=== PATIENT | male | born 1975 | race Caucasian/White ===

== ENCOUNTER 2016-11-29 11:06 | Inpatient (IN) | payer BC ==
[~2016-11-29] VITALS: Ht 172.7 cm; Wt 138.3 kg
--- NOTE | ~2016-11-29 | HEMODYNAMI ---
PATIENT:MORIAH TADEO MEDICAL RECORD: [id number] : 77 LOCATION:D.MS [facility] ADMISSION DATE: 11/29/16 Generatedon:12/06/201610:23 Patient name: MORIAH TADEO Patient #: [id number] SSN: : Date of study: 12/06/2016 Page: Of Hemodynamic Procedure Report Patient Data Patient Demographics Procedure consent was obtained First Name: MORIAH Gender: Male Last Name: SHWETHA : 1975 Middle Initial: M Age: 41 year(s) Patient #: [id number] Race: Unknown Additional ID: [id number] Contact [facility] State: [place] City: [facility] Zip code: [address] Admission Admission Data Admission Date: 11/29/2016 Admission Time: 11:06 Room #: D.2216 Procedure Procedure Types Cath Procedure Peripheral Cath Diagnostic Procedure Miscellaneous Procedure Description Procedure Date Procedure Date: 12/06/2016 Procedure Start Time: 10:06 Procedure Staff Name Function Chai Mendoza MD Performing Physician Autumn Rojas RT Scrub Mack Ceja RT Monitor Procedure Data Cath Procedure Fluoroscopy Diagnostic fluoroscopy Total fluoroscopy Time: 0 time: 0 min min Diagnostic fluoroscopy Total fluoroscopy dose: 106 dose: 106 mGy mGy Contrast Material Contrast Material Type Amount (ml) Isovue 300 10 Hemodynamics Rest Pre Cath Intra NCS Post Cath Procedure Log Time Note 9:50:56 Mack Ceja RT (R) (CV) sent for patient. Start room use. 9:51:24 Time tracking: Regular hours 9:51:29 Plan of Care:Hemodynamics will remain stable., Cardiac rhythm will remain stable., Comfort level will be maintained., Respiratory function will remain adequate., Patient/ family verbilizes understanding of procedure., Procedure tolerated without complication., Recovers from procedure without complications.. 9:51:42 Patient received from Med/Surg to IR Alert and oriented. Tansferred to table in Supine position. 9:51:43 Correct patient and procedure confirmed by team. 9:51:45 Signed procedure consent form obtained from patient. 9:51:47 ECG and BP/O2 sat monitors applied to patient. 9:51:50 Full Disclosure recording started 9:51:50 - 9:51:55 H&P Date Dictated: 12/06/2016 H&P Addendum completed by physician on day of procedure. (MUST COMPLETE FOR ALL OUTPATIENTS). 9:51:55 Pre-procedure instructions explained to patient. 9:51:56 Pre-op teaching completed and patient verbalized understanding. 9:52:12 Alarms reviewed by R. N. 9:52:13 Sharps counted by scrub and verified by R.N. 9:52:18 Right abdomen area was prepped with chlora-prep and draped in sterile fashion 9:52:42 Use device set IR Diagnostic 9:52:45 Bag Decanter opened to sterile field. 9:52:45 Sterile Angiographic Pack opened to sterile field. 10:06:08 Physician arrived 10:06:08 --------ALL STOP TIME OUT------ 10:06:09 Final Timeout: patient, procedure, and site verified with staff and physician. All members of the team are in agreement. 10:06:12 Right abdomen site verified by team. 10:06:21 Sedation plan: Local Anesthetic Lidocaine 10:06:43 Procedure started. 10:06:49 Local anesthetic to Abdominal area with Lidocaine 1% by Chai Mendoza MD.INITIAL ACCESS ONLY 10:17:17 Terumo ANGLE 180L glide wire opened to sterile field. 10:19:45 Procedure ended.(Physican Out) 10:20:18 Contrast amount:Isovue 300 10ml. 10:20:22 Fluoroscopy time 00.00 minutes. 10:20:27 Fluoroscopy dose: 106 mGy 10:20:27 Flurop Dose total: 106 10:20:28 Sharps counted by scrub and verified by R.N. 10:20:49 Post-op/insertion site Right Abdominal area dressed using a 4 x 4 and Tegaderm. 10:20:55 Post Abdominal area:stable 10:20:57 Post Procedure Pulses reassessed and unchanged 10:20:58 Procedure and supply charges have been captured, reviewed, submitted an d are correct. 10:22:27 Report given to Med/Surg. 10:22:32 Patient transfered to Med/Surg with Bed. Device Usage Item Name Manufacture Quantity Catalog Hospital Part Current Minimal Lot# / Number Charge Number Stock Stock Serial# Code Bag Decanter Microtek 1 [id number] 5 [employer] Sterile Cardinal 1 [id number] 5 Angiographic Health Pack Terumo ANGLE Terumo 1 [id number] 5 180L glide wire Signature Audit [place] Stage Time Signature Unsigned Intra-Procedure 12/06/2016 Mack 10:23:08 AM Marcial RT (R) (CV) Signatures Monitor : Mack Signature : Marcial RT Date : Time : [facility] [address] [place] [address]
[2016-11-29 12:10] LABS: BASOPHILS 0.2 % (0-2); EOSINOPHILS 2.2 % (0-7); HEMATOCRIT 43.8 % (42.0-54.0); HEMOGLOBIN 15.4 g/dL (13.5-17.5); IMMATURE GRANULOCYTES 0.2 % (0-5); LYMPHOCYTES 12.2 % (15-50); MCH 30.5 pg (26.0-34.0); MCHC 35.2 g/dL (31.0-37.0); MCV 86.7 fL (80.0-100.0); MEAN PLATELET VOLUME 10.4 fL (7.4-10.4); MONOCYTES 8.5 % (2-11); NEUTROPHILS 76.7 % (40-80); PLATELET COUNT 313 10x3/uL (130-400); RBC 5.05 10x6/uL (4.20-6.10); RDW 12.4 % (11.5-14.5); WBC 9.8 10x3/uL (4.8-10.8)
[2016-11-29 12:27] LABS: ALBUMIN 3.7 g/dL (3.4-5.0); ALKALINE PHOSPHATASE 92 U/L (46-116); ALT (SGPT) 44 U/L (10-68); BILIRUBIN - TOTAL 0.74 mg/dL (0.2-1.3); CALC OSMOLALITY 273 mosm/kg (275-300); CALCIUM 9.1 mg/dL (8.5-10.1); CARBON DIOXIDE 24.8 mmol/L (21.0-32.0); CHLORIDE - SERUM 101 mmol/L (98-107); GLUCOSE 87 mg/dL (74-106); POTASSIUM - SERUM 3.8 mmol/L (3.5-5.1); PROTEIN - SERUM 8.2 g/dL (6.4-8.2); SODIUM 137 mmol/L (136-145); UREA NITROGEN 16 mg/dL (7-18); eGFR NON AFRICAN AMERICAN 88 mL/min (90-120)
--- NOTE | 2016-11-29 12:40 | NUR ---
IN ROOM. STATES HE HAS BEEN HERE SINCE 1200. INTRODUCED MYSELF AND APOLOGIZE FOR THE WAIT. ORIENTED TO ROOM AND CALL LIGHT SYSTE. AND BROTHER AT BEDSIDE. CALL LIGHT IN REACH. WILL CONTINUE WITH PLAN OF CARE.
--- NOTE | 2016-11-29 13:00 | NUR ---
ATTEMPTED TO PLACE AN IV. SITED TO RIGHT FOREARM WITH 20 GA X1 STICK BUT VEIN BLEW WHEN FLUSHED. UNABLE TO GET 2ND ATTEMPT.
[2016-11-29 13:30] VITALS: BP 168/97; BMI 46.4
--- NOTE | 2016-11-29 14:01 | NUR ---
VASCULAR NURSE IN ROOM TO DO MIDLINE. IV FLUIDS AND IV ABX INITIATED PER ORDER. URINAL GIVEN TO PATIENT TO COLLECT SAMPLE FOR UA AND CULTURE.
--- NOTE | 2016-11-29 14:32 | NUR ---
URINE SAMPLE COLLECTED AND SENT TO LAB.
[2016-11-29 16:12] LABS: APPEARANCE CLEAR (CLEAR); BILIRUBIN NEGATIVE (NEGATIVE); COLOR YELLOW (YELLOW); GLUCOSE NEGATIVE (NEGATIVE); KETONE MODERATE mg/dL (NEGATIVE); LEUKOCYTE ESTERASE NEGATIVE (NEGATIVE); NITRITE NEGATIVE (NEGATIVE); PROTEIN NEGATIVE (NEGATIVE); SPECIFIC GRAVITY 1.015 (1.005-1.020); UROBILINOGEN NORMAL (NORMAL)
[2016-11-29 16:29] VITALS: BP 157/95
--- NOTE | 2016-11-29 16:59 | NUR ---
FAMILY UPSET BECAUSE THEY WERE UNDER THE IMPRESSION THAT THE PATIENT WOULD HAVE SURGERY SOON HE GOT TO THE HOSPITAL. ASKED ESTHER SOTO TO SPEAK WITH PATIENT AND FAMILY.
--- NOTE | 2016-11-29 18:07 | NUR ---
NO CHANGES IN INITIAL ASSESSMENT. CALL LIGHT IN REACH. WILL CONTINUE WITH PLAN OF CARE. SCDs TO BLE.
[2016-11-29 20:07] VITALS: BP 149/94
--- NOTE | 2016-11-29 22:07 | NUR ---
REC'D LYING IN BED. ALERT AND ORIENTED X4. DENIED PAIN AT THIS TIME. DENIED FURTHER NEEDS AT THIS TIME. REPORTED THAT HE DIDNT KNOW WHY HE WAS HE HERE. I EXPLAINED TO HIM ABT THE FISTULA THAT HE HAS AND THE ABCESS AND HOW THE PLANS ON TREATING IT. VERBALIZED UNDERSTANDING. NO DISTRESS NOTED. INSTRUCTED TO CALL IF NEEDED ANYTHING. VERBALIZED UNDERSTANDING. WILL ADMIN PM/AM MEDS PRESCRIBED. BED LOW, LOCKED, CALL LIGHT IN REACH. WILL CONT TO DU.
[2016-11-29 23:50] VITALS: BP 142/84
[2016-11-30 04:00] VITALS: BP 130/80
--- NOTE | 2016-11-30 04:52 | NUR ---
PATIENT RESTING WITH EYES CLOSED AND NO VISIBLE SIGNS OF DISTRESS. BED IN LOWEST POSITION AND CALL LIGHT WITHIN REACH.
--- NOTE | 2016-11-30 07:25 | NUR ---
PATIENT RECEIVED IN LOW INMAN POSITION RESTING WITH EYES CLOSED. RESPIRATIONS EVEN AND UNLABORED. DENIES PAIN OTHER THAN "GAS PAIN" BED IN LOW POSITION. CALL LIGHT IN REACH. FAMILY AT BEDSIDE.
--- NOTE | 2016-11-30 07:30 | NUR ---
ASSESSMENT PER FLOW SHEET.PT WITHOUT DISTRESS.DENIES NEEDS.CALL LIGHT IN REACH
[2016-11-30 08:01] LABS: BASOPHILS 0.2 % (0-2); EOSINOPHILS 1.9 % (0-7); HEMATOCRIT 42.9 % (42.0-54.0); HEMOGLOBIN 15.4 g/dL (13.5-17.5); IMMATURE GRANULOCYTES 0.2 % (0-5); LYMPHOCYTES 11.1 % (15-50); MCH 30.7 pg (26.0-34.0); MCHC 35.9 g/dL (31.0-37.0); MCV 85.5 fL (80.0-100.0); MEAN PLATELET VOLUME 10.5 fL (7.4-10.4); MONOCYTES 10.4 % (2-11); NEUTROPHILS 76.2 % (40-80); PLATELET COUNT 281 10x3/uL (130-400); RBC 5.02 10x6/uL (4.20-6.10); RDW 12.4 % (11.5-14.5); WBC 8.6 10x3/uL (4.8-10.8)
[2016-11-30 08:17] LABS: ALKALINE PHOSPHATASE 76 U/L (46-116); ALT (SGPT) 34 U/L (10-68); CALC OSMOLALITY 274 mosm/kg (275-300); CALCIUM 8.8 mg/dL (8.5-10.1); CARBON DIOXIDE 25.2 mmol/L (21.0-32.0); CHLORIDE - SERUM 102 mmol/L (98-107); CREATININE - SERUM 0.9 mg/dL (0.6-1.3); GLUCOSE 94 mg/dL (74-106); MAGNESIUM - SERUM 1.9 mg/dL (1.8-2.4); PHOSPHOROUS 3.4 mg/dL (2.5-4.9); POTASSIUM - SERUM 3.8 mmol/L (3.5-5.1); PROTEIN - SERUM 7.4 g/dL (6.4-8.2); SODIUM 137 mmol/L (136-145); UREA NITROGEN 16 mg/dL (7-18); eGFR NON AFRICAN AMERICAN > 90 mL/min (90-120)
[2016-11-30 09:08] LABS: APTT 34.7 SECONDS (22.8-39.4); INR 1.17 (0.85-1.17); PROTIME 14.8 SECONDS (11.6-15.0)
[2016-11-30 10:12] VITALS: Ht 172.7 cm; Wt 138.3 kg
[2016-11-30 10:19] VITALS: BP 135/75
--- NOTE | 2016-11-30 12:25 | NUR ---
TO IR VIA BED
[2016-11-30 14:08] VITALS: BP 140/81
[2016-11-30 17:15] VITALS: BP 126/83
[2016-11-30 20:00] VITALS: BP 140/74
--- NOTE | 2016-11-30 20:10 | NUR ---
PT YELLS OUT FOR HELP PT IS [facility] OUT OF BED WITH HEAD AND BOTTOM STILL ON BED V/S WNL AND COLD CLAMY SKIN DR COREA NOTIFIED
[2016-11-30 21:21] LABS: CKMB 0.3 U/L (0.0-3.6); CREATINE KINASE 51 UL (21-232)
[2016-11-30 21:22] LABS: TROPONIN-I < 0.017 ng/mL (0.000-0.060)
[2016-12-01] VITALS: BP 139/77
[2016-12-01 02:19] LABS: BASOPHILS 0.1 % (0-2); EOSINOPHILS 0.5 % (0-7); HEMATOCRIT 40.1 % (42.0-54.0); HEMOGLOBIN 14.3 g/dL (13.5-17.5); IMMATURE GRANULOCYTES 0.2 % (0-5); LYMPHOCYTES 9.6 % (15-50); MCH 30.4 pg (26.0-34.0); MCHC 35.7 g/dL (31.0-37.0); MCV 85.3 fL (80.0-100.0); MEAN PLATELET VOLUME 9.9 fL (7.4-10.4); MONOCYTES 8.2 % (2-11); NEUTROPHILS 81.4 % (40-80); PLATELET COUNT 268 10x3/uL (130-400); RDW 12.1 % (11.5-14.5); WBC 10.7 10x3/uL (4.8-10.8)
[2016-12-01 02:40] LABS: CALC OSMOLALITY 268 mosm/kg (275-300); CALCIUM 8.5 mg/dL (8.5-10.1); CARBON DIOXIDE 25.9 mmol/L (21.0-32.0); CHLORIDE - SERUM 103 mmol/L (98-107); CKMB 0.1 U/L (0.0-3.6); CREATINE KINASE 51 UL (21-232); CREATININE - SERUM 0.9 mg/dL (0.6-1.3); GLUCOSE 96 mg/dL (74-106); POTASSIUM - SERUM 3.8 mmol/L (3.5-5.1); SODIUM 135 mmol/L (136-145); TROPONIN-I < 0.017 ng/mL (0.000-0.060); eGFR NON AFRICAN AMERICAN > 90 mL/min (90-120)
[2016-12-01 02:50] LABS: UREA NITROGEN 11 mg/dL (7-18)
[2016-12-01 04:00] VITALS: BP 144/76
--- NOTE | 2016-12-01 07:30 | NUR ---
ASSESSMENTPER FLOW SHEET.PT WITHOUT DISTRESS.CALL LIGHT IN REACH.
[2016-12-01 09:38] LABS: CKMB 0.2 U/L (0.0-3.6); CREATINE KINASE 50 UL (21-232)
[2016-12-01 09:40] LABS: TROPONIN-I < 0.017 ng/mL (0.000-0.060)
[2016-12-01 10:21] VITALS: BP 139/82
[2016-12-01 12:47] VITALS: BP 171/99
[2016-12-01 14:30] LABS: HEMOGLOBIN A1C 5.6 % (4.8-6.0)
--- NOTE | 2016-12-01 18:00 | NUR ---
REMAINS WITHOUT CHANGE.TOLERATING CL DIET.CALENDER WIND UP HELPER CONTROLLING PAIN.30 CC OF BLOOD TINGED DRAINAGE IN BILI BAG.CONT PLAN OF CARE
--- NOTE | 2016-12-01 19:00 | NUR ---
REPORT RECEIVED AND CARE OF PT ASSUMED. PT LYING IN SUPINE POSITION WATCHING TV. RIGHT MIDLINE IV PATENT WITH NS INFUSING AT 100 ML / HR. CENTRAL PROCESSING TECHNICIAN / DILAUDID IN USE AND PT STATES PAIN WELL CONTROLLED AT THIS ASSESSMENT. DRESSING AROUND DRAIN CLEAN AND DRY. SCANT BLOODY DRAINAGE IN COLLECTION BAG. WILL MONITOR CLOSELY FOR NEEDS. CALL LIGHT WITHIN REACH.
[2016-12-01 20:00] VITALS: BP 139/85
--- NOTE | 2016-12-01 20:37 | NUR ---
HS MEDICATIONS GIVEN. WILL CONTINUE TO MONITOR FOR NEED.
--- NOTE | 2016-12-01 21:45 | NUR ---
FLUSHED DRAIN WITH 10 ML NS WITH IMMIDIATE RETURN OF BLOODY DRAINAGE. WILL CONTINUE TO MONITOR FOR NEED.
--- NOTE | 2016-12-01 22:07 | NUR ---
AT BEDSIDE PERFORMING RANGE OF MOTION EXERCISES ON PT.
[2016-12-02] VITALS: BP 128/70
--- NOTE | 2016-12-02 00:30 | NUR ---
PT RESTING QUIETLY IN SUPINE POSITION WITH EYES CLOSED AND EVEN RESPIRATIONS. IS AT BEDSIDE. CALL LIGHT WITHIN REACH.
[2016-12-02 04:00] VITALS: BP 117/74
[2016-12-02 05:23] LABS: BASOPHILS 0.2 % (0-2); EOSINOPHILS 1.5 % (0-7); HEMOGLOBIN 13.3 g/dL (13.5-17.5); IMMATURE GRANULOCYTES 0.1 % (0-5); LYMPHOCYTES 12.9 % (15-50); MCV 85.6 fL (80.0-100.0); MEAN PLATELET VOLUME 10.2 fL (7.4-10.4); MONOCYTES 9.6 % (2-11); NEUTROPHILS 75.7 % (40-80); PLATELET COUNT 262 10x3/uL (130-400); RBC 4.44 10x6/uL (4.20-6.10); RDW 12.2 % (11.5-14.5); WBC 8.8 10x3/uL (4.8-10.8)
[2016-12-02 05:37] LABS: CALC OSMOLALITY 268 mosm/kg (275-300); CALCIUM 8.6 mg/dL (8.5-10.1); CARBON DIOXIDE 25.3 mmol/L (21.0-32.0); CHLORIDE - SERUM 103 mmol/L (98-107); CREATININE - SERUM 0.8 mg/dL (0.6-1.3); GLUCOSE 94 mg/dL (74-106); POTASSIUM - SERUM 3.6 mmol/L (3.5-5.1); SODIUM 135 mmol/L (136-145); UREA NITROGEN 11 mg/dL (7-18); eGFR NON AFRICAN AMERICAN > 90 mL/min (90-120)
--- NOTE | 2016-12-02 08:16 | NUR ---
PT SEEN AND ASSESSED. NO COMPLAINTS AT PRESENT. STATES PACKAGING TECH IS HELPING PAIN CONTROL. DRAIN NOTED TO RIGHT LOWER ABDOMEN WITH BLOODY DRAINAGE. ENCOURAGED PATIENT TO BE OUT OF BED AND IN CHAIR/AMBULATE. STATES HE WILL. AT BEDSIDE. CALL LIGHT IN REACH
[2016-12-02 08:17] VITALS: BP 142/89
[2016-12-02 12:03] VITALS: BP 126/85
--- NOTE | 2016-12-02 15:04 | PN ---
PATIENT:MORIAH TADEO MEDICAL RECORD: [id number] LOCATION:D.MS [facility] ADMISSION DATE: 11/29/16 PROGRESS NOTE DATE OF SERVICE: 12/01/2016 Addendum CHIEF COMPLAINT: Fatigue. The patient had a syncopal episode yesterday. He was sitting on the edge of the bed and then he stood up, had a syncopal episode, fell back onto the bed and was diaphoretic. I was concerned about a pulmonary embolism. The patient underwent a CTA of the pulmonary arteries and this revealed no pulmonary embolism. Nothing aggravates. Nothing alleviates. He states that he just feels fatigued. He ate well last evening. Not so well today. His abdomen is nontender. Nothing aggravates. Nothing alleviates. He is not in any pain. REVIEW OF SYSTEMS: No nausea, no vomiting, no fever, no chills, no chest pain, no shortness of breath. The review of systems is negative other than as is described above. For the current medications, family history, social history, please see the typed portion in the chart. PHYSICAL EXAMINATION: GENERAL: The patient does not appear acutely ill. He does not appear chronically ill. VITAL SIGNS: Reviewed. EARS: External ears appear normal. EYES: Extraocular movements are intact. NECK: Trachea is midline. CHEST: No intercostal retractions. PULMONARY: Nonlabored, no stridor. ABDOMEN: Nontender. There is a lower abdominal drain. EXTREMITIES: No peripheral cyanosis. INTEGUMENT: No rash. PSYCHIATRIC: Normal affect. NEUROLOGIC: Nonfocal, no lethargy. The patient answers questions appropriately and moves all extremities well. BACK: No thoracic kyphosis. LYMPHATIC: No lymphangitic streaking of the exposed extremities. IMPRESSION: Diverticulitis with abscess and possible colovesicular fistula. PLAN: Continue IV antibiotics. Consult Dr. Marshall in the morning. The family wants to have a hemoglobin A1c drawn. TRANSINT:[id number] Voice Confirmation ID: [id number] DOCUMENT ID: [id number] PROGRESS NOTE [id number] SHWETHA,MORIAH SANTANA, ROBIN HUFF at 1504 CC: [id number] DICTATION DATE: 12/01/16 1430 DRAFTER DIRECTIONAL SURVEY: 12/01/16 2236 ADM IN [id number] [place] [address]
--- NOTE | 2016-12-02 15:04 | CN ---
PATIENT NAME:MORIAH TADEO MEDICAL RECORD: [id number] : 77 LOCATION:D.MS [facility]16 ADMIT DATE: 11/29/16 ACCOUNT: [id number] CONSULTING PHYSICIAN: ROBIN SANTANA MD REFERRING PHYSICIAN: CAITIE CORCORAN DO DATE OF CONSULTATION: 11/29/2016 CHIEF COMPLAINT: Pain. HISTORY OF PRESENT ILLNESS: The patient had about 6 bouts of diverticulitis in his lifetime. He has noted some hematuria. A CT scan was performed today at another facility. I am unable to pull up the images on a disc. Reportedly, it revealed a peridiverticular abscess and a colovesicular fistula. Symptoms came on suddenly. They are not worsening. Palpation aggravates. Nothing alleviates. PAST MEDICAL AND SURGICAL HISTORY: Diverticulitis. ALLERGIES: No known drug allergies. FAMILY HISTORY: Parents had diabetes. Siblings had no known medical problems. SOCIAL HISTORY: The patient smokes, I advised him to quit smoking. REVIEW OF SYSTEMS: Negative for fatigue. Negative for weakness. Negative for headache. Negative for dizziness. Negative for numbness. No chest pain. No chills. No dysuria; however, does have hematuria, no pneumaturia. No shortness of breath, no cough, no extremity pain. PHYSICAL EXAMINATION: GENERAL: The patient does not appear acutely ill. He does not appear chronically ill. VITAL SIGNS: Reviewed. EARS: External ears appear normal. EYES: Extraocular movements are intact. NECK: Trachea is midline. CHEST: No intercostal retractions. PULMONARY: Nonlabored, no stridor. ABDOMEN: Really, nontender. No peritonitis to percussion. EXTREMITIES: No peripheral cyanosis. INTEGUMENT: No rash, no ulcerations. PSYCHIATRIC: Normal affect. NEUROLOGIC: Nonfocal, no lethargy. The patient answers questions appropriately, moves all extremities well. BACK: No thoracic kyphosis. LYMPHATICS: No lymphangitic streaking of the exposed extremities. IMPRESSION: Diverticulitis with peridiverticular abscess and colovesicular fistula. PLAN: I will add Cipro to Levaquin, which has already being infused. Ice chips only for now. Consult interventional radiology for CT-guided drain. I will plan for 7 days in the hospital on intravenous antibiotics and then another 2 weeks at home on oral antibiotics. I will consult Dr. Adair on Friday. We are CONSULT REPORT [id number] MORIAH TADEO going to try to wait 6 weeks to 3 months before we perform a segmental resection of the colon and bladder repair. Hopefully, this will allow the inflammation to decrease to the point where we can do a primary anastomosis and avoid an ileostomy or colostomy proximally. TRANSINT:[id number] Voice Confirmation ID: [id number] DOCUMENT ID: [id number] ROBIN SANTANA MD at 1504 CC: CAITIE CORCORAN DO [id number] DICTATION DATE: 11/29/161904 WIRE STOCKKEEPER: 11/30/16 0001 ADM IN [facility] [address] [id number]
--- NOTE | 2016-12-02 15:11 | NUR ---
NUTRITION MONITORING & EVAL CHART REVIEWED. PT CURRENTLY WITH CLEAR LIQUID DIET. WILL MONITOR DIET ADVANCEMENT, PO INTAKE. RD FOLLOWING
--- NOTE | 2016-12-02 15:24 | NUR ---
PT AND AT [facility] ARE RESTING WITH EYES CLOSED. BILARY DRAIN HAS BLOODY FLUID IN IT. CALL LIGHT IN REACH
[2016-12-02 16:14] VITALS: BP 145/93
[2016-12-02 20:00] VITALS: BP 132/72
--- NOTE | 2016-12-02 20:00 | NUR ---
ASSESSMENT PER FLOWSHEET. BILI DRAIN PAIN LOWER ABDOMEN AREA WITH GREEN COLOR DRAINAGE. IV PATENT RT AC MIDLINE SITE WITH NS AT 100CC'S/HR. SITE CLEAR. MICROBIOLOGICAL LABORATORY TECHNICIAN OF DILAUDID IN USE WITH SETTINGS AT 0.2MG Q10MIN NO L/O.TELM. SHOWS SR WITH HR 62-64.
[2016-12-03] VITALS (10 sets, daily range): BP systolic 114–165; BP diastolic 71–100
--- NOTE | 2016-12-03 | NUR ---
RESTING QUIETLY DENIES NEEDS.
[2016-12-03] MEDS ORDERED: CIPRO500 MG PO (04:02)
--- NOTE | 2016-12-03 04:36 | NUR ---
EYES CLOSED RESPIRATIONS WITH EASE AND UNLABORED.
[2016-12-03 05:47] LABS: BASOPHILS 0.1 % (0-2); EOSINOPHILS 1.7 % (0-7); HEMATOCRIT 40.8 % (42.0-54.0); HEMOGLOBIN 14.5 g/dL (13.5-17.5); IMMATURE GRANULOCYTES 0.2 % (0-5); LYMPHOCYTES 14.3 % (15-50); MCH 30.1 pg (26.0-34.0); MCHC 35.5 g/dL (31.0-37.0); MCV 84.8 fL (80.0-100.0); MEAN PLATELET VOLUME 10.4 fL (7.4-10.4); MONOCYTES 6.9 % (2-11); NEUTROPHILS 76.8 % (40-80); PLATELET COUNT 339 10x3/uL (130-400); RBC 4.81 10x6/uL (4.20-6.10); RDW 12.3 % (11.5-14.5); WBC 10.4 10x3/uL (4.8-10.8)
[2016-12-03 06:08] LABS: CALC OSMOLALITY 268 mosm/kg (275-300); CALCIUM 8.9 mg/dL (8.5-10.1); CHLORIDE - SERUM 103 mmol/L (98-107); CREATININE - SERUM 0.9 mg/dL (0.6-1.3); GLUCOSE 99 mg/dL (74-106); POTASSIUM - SERUM 3.7 mmol/L (3.5-5.1); SODIUM 135 mmol/L (136-145); UREA NITROGEN 9 mg/dL (7-18); eGFR NON AFRICAN AMERICAN > 90 mL/min (90-120)
--- NOTE | 2016-12-03 07:15 | NUR ---
REPORT RECEIVED, ASSUMED CARE OF PT. NPO. R MIDLINE WITH FLUIDS RUNNING ORDERED, ICHTHYOLOGY TEACHER ORDERED, DRSG CLEAN, DRY AND INTACT. RLQ DRAIN IN PLACE, PATENT, DRSG CLEAN, DRY AND INTACT. NO COMPLAINTS AT THIS TIME. FAMILY AT BEDSIDE. BED IN LOWEST POSITION, SIDE RAILS UP X 2, CALL LIGHT WITHIN REACH.
--- NOTE | 2016-12-03 11:12 | NUR ---
Patient Name: MORIAH SHEPHERD Admission Status: Elective Accout number: [id number] Admission Date: 11-29-2016 : 1975 Admission Diagnosis:DVTRCLI OF LG INT W PERFORATION AND ABSCESS W/O BLEEDIN Attending: JUAN M Current LOS: 4 Anticipated DC Date: Planned Disposition: Home Primary Insurance: [place] OUT OF STATE Discharge Planning Comments: CM met with patient and (Nabor) to assess discharge planning needs. Patient is independent and lives at home with his and children. 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 Patient denies any HH or DME and does not think he will need any when the time comes. He has 5 steps to enter in his home. CM will continue to follow and assist as needed PCP: Nilo JACKSON Nabor Shepherd () [phone] Jewelry Casting Model Maker Apprentice: Lenora Hutchison * Is the patient Alert and Oriented? Yes 0 * How many steps to enter\exit or inside your home? 5 0 * PCP NILO 0 * Pharmacy [facility] * Preadmission Environment Home with Family 0 * ADLs Independent 0 * List name and contact numbers for known caregivers / representatives who currently or will assist patient after discharge: NABOR SHEPHERD () [phone] 0 * Community resources currently utilized None 0 * Additional services required to return to the preadmission environment? No 0 * Can the patient safely return to the preadmission environment? Yes 0 * Has this patient been hospitalized within the prior 30 days at any hospital? No 0 Grand Total: 0
--- NOTE | 2016-12-03 12:50 | NUR ---
PT RESTING IN ROOM, FAMILY AT BEDSIDE. NO NEEDS AT THIS TIME. BED IN LOWEST POSITION, SIDE RAILS UP X 2, CALL LIGHT WITHIN REACH.
--- NOTE | 2016-12-03 13:00 | PN ---
PATIENT:MORIAH TADEO MEDICAL RECORD: [id number] LOCATION:D.MS [facility] ADMISSION DATE: 11/29/16 PROGRESS NOTE DATE OF SERVICE: 12/02/2016 CHIEF COMPLAINT: The patient is feeling better. HISTORY OF PRESENT ILLNESS: I discussed this case personally with Dr. Adair. Dr. Adair is going to perform a cystoscopy on the patient tomorrow and this will help determine whether he does have colovesicular fistula or not. The patient has a little bit of pain around the drain entry site. Otherwise, his abdomen is nontender. He is not having any nausea. He has had 2 bowel movements. He is tolerating a clear liquid diet. I am going to move him up to a full liquid diet, but make him n.p.o. after midnight in preparation for his cystoscopy. Palpation aggravates. Nothing alleviates. Symptoms are nonradiating. Symptoms are very mild. PAST MEDICAL AND SURGICAL HISTORY: Please see the chart. CURRENT MEDICATIONS: Please see the chart. SOCIAL HISTORY, FAMILY HISTORY AND ALLERGIES: Please see the chart. REVIEW OF SYSTEMS: No nausea, no vomiting, no fever, no chills. He had 1 tachycardic episode today. Otherwise, his vital signs have been pretty stable and he has been afebrile. His white count is normal at 8.8. He is not having any chest pain. No shortness of breath. No more syncopal or near syncopal episodes. The review of systems is negative other than as is described above. PHYSICAL EXAMINATION: GENERAL: The patient does not appear acutely ill. He does not appear chronically ill. VITAL SIGNS: Reviewed. EARS: External ears appear normal. EYES: Extraocular movements are intact. NECK: Trachea is midline. CHEST: No intercostal retractions. PULMONARY: Nonlabored, no stridor. ABDOMEN: Tender only at the drain entry site. EXTREMITIES: No peripheral cyanosis. INTEGUMENT: No rash, no ulcerations. PSYCHIATRIC: Normal affect. NEUROLOGIC: Nonfocal, no lethargy. The patient answers questions appropriately, moves all extremities well. BACK: No thoracic kyphosis. LYMPHATIC: No lymphangitic streaking of the exposed extremities. IMPRESSION: 1. Diverticular abscess, clinically improved. 2. Possible colovesicular fistula. PLAN: As described above. Cystoscopy tomorrow. Continue IV antibiotics. Serial abdominal examinations. I will advance him up to a full liquid diet. PROGRESS NOTE [id number] MORIAH TADEO TRANSINT:[id number] Voice Confirmation ID: [id number] DOCUMENT ID: [id number] ROBIN SANTANA MD at 1300 CC: [id number] DICTATION DATE: 12/02/[address] APPRAISER: 12/03/16 0100 ADM IN [place] [address] [place] [address]
--- NOTE | 2016-12-03 14:10 | NUR ---
PT LEFT FL0OR WITH OR, ACCOMPANIED.
--- NOTE | 2016-12-03 15:46 | NUR ---
PRE OP BP 190/113
--- NOTE | 2016-12-03 16:15 | NUR ---
PT RETURNED FROM SURG. REATTACEHED TO MONITOR. IV CONNECTED TO RIGHT UPPER ARM MIDLINE. NO COMPLAINTS AT PRESENT EXCEPT FOR STINGING SENSATION AT END OF PENIS. CALL LIGHT IN REACH. AT BEDSIDE
--- NOTE | 2016-12-03 19:14 | NUR ---
SHIFT REPORT GIVEN. PT RESTING IN ROOM, FAMILY AT BEDSIDE. NO COMPLAINTS AT THIS TIME. BED IN LOWEST POSITION, SIDE RAILS UP X 2, CALL LIGHT WITHIN REACH.
--- NOTE | 2016-12-03 20:00 | NUR ---
ASSESSMENT ME FLOWSHEET. O2 ON 4L/M PER NC. AT BEDSIDE. IV PATENT LEFT AC OF NS AT 50CC'S/HR SITE CLEAR. LANDAVERDE TO BSD WITH YELLOW URINE NOTED. HOB UP 35 DEGREES. LUNG BASES DIMINISHED.
--- NOTE | 2016-12-03 20:00 | NUR ---
ASSESSMENT PER FLOWSHEET. BILI DRAIN PATENT LOWER ABDOMINAL AREA WITH BLOOD TINGED DRAINAGE NOTED. IV PATENT RT UPPER ARM MIDLINE WITH NS AT 100CC'S/HR SITE CLEAR. PRODUCTION UNDERWRITER OF DILAUDID IN USE WITH SETTINGS AT 0.2MG Q10MIN AND NO L/O. TELM. SHOWS. SR WITH HR 90. SCD'S ON. SR UP X2 CALL LIGHT WITHIN REACH. VOIDS IN URINAL BLOODY URINE NOTED.
--- NOTE | 2016-12-03 20:06 | OP ---
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 FINDINGS: Obstructive bladder neck. No bladder tumors. Single ureteral orifices bilaterally. Inflamed tissue on the anterior bladder wall and dome which may represent a colovesical fistula. PROCEDURE: Cystoscopy. SPECIMEN: None. ESTIMATED BLOOD LOSS: None. CLINICAL HISTORY: This is a 41-year-old male with a prior history of diverticulitis. He came in with a 2-week history of gross hematuria as well as diarrhea and abdominal pain. CT scan showed sigmoid diverticulitis with an abscess. The abscess has been drained percutaneously. He remains on IV antibiotics. There is a question of having a colovesical fistula on the CT scan. We come now to perform cystoscopy to check for the fistula formation. He is already on IV antibiotics on the floor and we did not give him any further IV antibiotics. DESCRIPTION OF PROCEDURE: The patient was given IV sedation. He was then placed in the dorsal lithotomy position, prepped and draped. A 17-Albanian cystoscope with 30-degree lens was used for visualization. Penile urethra was normal. Prostatic urethra shows nonobstructive lateral lobes. However, the bladder neck is rather tight. Going into the bladder itself, the ureteral orifices are single on each side. No bladder tumors were seen. The entire bladder wall was extremely clean except when we came to the anterior wall/dome area of the bladder where heaped up inflammatory masses were seen. Most likely this represents the area of the fistula. Dr. Dolan's plan is to bring him back after period of IV antibiotics for sigmoid colon resection. At that time, we can excise the fistula tract in the bladder and closed the bladder up. TRANSINT:[id number] Voice Confirmation ID: [id number] DOCUMENT ID: [id number] OPERATIVE REPORT [id number] MORIAH TADEO DARIAN CONTEH MD at 2005 CC: [id number] DICTATION DATE: 12/03/16 1543 MENTAL HYGIENE CONSULTANT: 12/03/161915 ADM IN [facility] [address] [id number]
--- NOTE | 2016-12-03 21:00 | NUR ---
MEDS GIVEN PER MAR.
--- NOTE | 2016-12-03 22:00 | NUR ---
EYES CLOSED RESPIRATIONS WITH EASE AND UNLABORED. SLEEPING IN CHAIR AT BEDSIDE.
[2016-12-04] VITALS (7 sets, daily range): BP systolic 139–169; BP diastolic 83–111
--- NOTE | 2016-12-04 01:00 | NUR ---
RESTING QUIETLY VOIDS WELL IN URINAL COLOR NOW LILY COLOR WITH LITTLE OR NO PAIN TO VOID.
--- NOTE | 2016-12-04 06:00 | NUR ---
MEDS GIVEN PER JUN. UP TO BR HAD SOFT FORMED STOOL.
--- NOTE | 2016-12-04 07:10 | NUR ---
REPORT RECIEVED, ASSUMED CARE OF PATIENT. PT RESTING WITH EYES SHUT, AT BEDSIDE. R MIDLINE IV, DRSG CLEAN, DRY AND INTACT, FLUIDS RUNNING ORDERED, DESIGN ASSEMBLER ORDERED. BILI DRAIN IN PLACE, DRSG CLEAN, DRY AND INTACT. TELEMETRY IN PLACE, SINUS RHYTHM 92 BPM. BED IN LOWEST POSITION, SIDE RAILS UP X 2, CALL LIGHT WITHIN REACH.
--- NOTE | 2016-12-04 14:48 | NUR ---
R MIDLINE UPPER ARM DRSG CHANGED. CONTENTS OF ENTIRE PACKAGE USED.
--- NOTE | 2016-12-04 15:45 | NUR ---
PT IN ROOM, AT BEDSIDE PERFORMING BED BATH. NO NEEDS OR COMPLAINTS VOICED AT THIS TIME.
--- NOTE | 2016-12-04 16:34 | NUR ---
PT C/O FEELING LIGHT-HEADED. VS B/P 147/98, PULSE 95 BPM, RESP 18, O2 SAT 98% AND TEMP 98.8. DR. CORCORAN CONTACTED REGARDING ELEVATED B/P, WILL ORDER MED.
--- NOTE | 2016-12-04 19:22 | NUR ---
PT IN BED, FAMILY AT BEDSIDE. NO COMPLAINTS AT THIS TIME. BED IN LOWEST POSITION, SIDE RAILS UP X 2, CALL LIGHT WITHIN REACH.
--- NOTE | 2016-12-04 19:54 | NUR ---
PATIENT IS IN BED. ALERT AND ORIENTED X'S 4. NO SIGNS OF DISTRESS NOTED. BED IN LOWEST POSITION, CALL LIGHT IN REACH. BED RAILS UP X'S 2.
[2016-12-05 04:00] VITALS: BP 118/69
--- NOTE | 2016-12-05 07:10 | NUR ---
REPORT RECIEVED, ASSUMED CARE OF PT. PT UP TO RESTROOM AT THIS TIME, NO COMPLAINTS. AT BEDSIDE.
--- NOTE | 2016-12-05 09:09 | PN ---
PATIENT:MORIAH TADEO MEDICAL RECORD: [id number] LOCATION:D.[facility] [place] ADMISSION DATE: 11/29/16 PROGRESS NOTE DATE OF SERVICE: 12/03/2016 CHIEF COMPLAINT: Diverticulitis. I was present for the patient's cystoscopy. I have discussed his current condition as well as my plan for the patient with Dr. Adair. We would like to continue him on intravenous antibiotics and then transition him to home oral antibiotics. Dr. Adair does believe that he has a colovesicular fistula, but that is not very large, that is why the patient does not have pneumaturia. Nothing aggravates, nothing alleviates. Symptoms are mild. For the past medical and surgical history, current medications, social history as well as family history please see the chart. REVIEW OF SYSTEMS: Unobtainable from the patient as he was sedated during the cystoscopy. PHYSICAL EXAMINATION: GENERAL: The patient does not appear acutely ill. He does not appear chronically ill. VITAL SIGNS: Reviewed. EARS: External ears appear normal. EYES: Extraocular movements are intact. NECK: Trachea is midline. CHEST: No intercostal retractions. PULMONARY: Nonlabored, no stridor. ABDOMEN: Nontender. GENITOURINARY: Visualized portions of the bladder demonstrated some inflammatory tissue within the bladder at the site of the colovesicular fistula. BACK: No thoracic kyphosis. LYMPHATIC: No lymphangitic streaking of the exposed extremities. PSYCHIATRIC: Unable to evaluate as the patient is sedated. NEUROLOGIC: Unable to evaluate as the patient is sedated IMPRESSION: 1. Diverticulitis with abscess. 2. Colovesicular fistula. PLAN: We can resume his diet. Continue IV antibiotics. I hope that we will be able to dismiss him home in the next few days on oral antibiotics. TRANSINT:[id number] Voice Confirmation ID: [id number] DOCUMENT ID: [id number] PROGRESS NOTE [id number] MORIAH TADEO ROBERT MD at 0909 CC: [id number] DICTATION DATE: 12/03/16 185 CONTACT LENS BLOCKER: 12/03/165 ADM IN [facility] [address] [place] [address]
[2016-12-05] MEDS ORDERED: COREG6.25 MG PO (09:11)
[2016-12-05] MEDS ORDERED: FLAGYL500 MG PO (09:12)
[2016-12-05] MEDS ORDERED: CIPRO500 MG PO (09:12)
--- NOTE | 2016-12-05 09:59 | NUR ---
Patient will be discharged today with [facility] for drain care. DELMI signed.
[2016-12-05 10:19] VITALS: BP 138/98
--- NOTE | 2016-12-05 11:07 | NUR ---
PT AND GIVEN DISCHARGE INSTRUCTIONS. DEMONSTRATED FLUSHING OF BILI DRAIN. VERBALIZES UNDERSTANDING. TELEMETRY DISCONTINUED. R MIDLINE IV D/C'D 15CM CATHETER INTACT, DRSG APPLIED. BILI DRAIN DRSG MINIMAL SATURATION, VOICES CONCERN, IR CONTACTED, WILL COME ASSESS DRAIN AND DRSG. NO OTHER COMPLAINTS AT THIS TIME.
--- NOTE | 2016-12-05 11:53 | NUR ---
MO FROM IR ASSESSED DRAIN, WILL PUT ON SCHEDULE FOR DRAIN CHECK.
--- NOTE | 2016-12-05 12:35 | NUR ---
PT DISCHARGE ON HOLD FOR NOW. NO NEEDS VOICED AT THIS TIME. NPO FOR DRAIN CHECK REQUESTED BY IR. BED IN LOWEST POSITION, SIDE RAILS UP X 2, CALL LIGHT WITHIN REACH.
[2016-12-05 18:10] VITALS: BP 137/98
--- NOTE | 2016-12-05 19:26 | NUR ---
PT RESTING IN ROOM, CONTACT PRECAUTIONS IN PLACE. NO COMPLAINTS AT THIS TIME. BED IN LOWEST POSITION, SIDE RAILS UP X 3, CALL LIGHT WITHIN REACH. FAMILY AT BEDSIDE.
[2016-12-05 20:00] VITALS: BP 136/89
[2016-12-06] VITALS: BP 155/92
[2016-12-06 04:00] VITALS: BP 167/89
--- NOTE | 2016-12-06 07:30 | NUR ---
REPORT RECEIVED FROM MUSICAL INSTRUMENT MECHANIC NURSE. CALL LIGHT IN REACH.
--- NOTE | 2016-12-06 07:57 | NUR ---
PATIENT UP TO BR AT THIS TIME. NO COMPLAINTS OR PROBLEMS. FAMILY AT BEDSIDE. CALL LIGHT WITHIN REACH.
--- NOTE | 2016-12-06 08:15 | NUR ---
ASSESSMENT COMPLETED. DENIES PAIN AT THIS TIME. IN ROOM. CALL LIGHT IN REACH. WILL CONTINUE WITH PLAN OF CARE.
--- NOTE | 2016-12-06 08:55 | NUR ---
CONSENT FOR PROCEDURE SIGNED AND WITNESSED. RADIOLOGY NURSE IN ROOM TO SPEAK WITH PATIENT.
[2016-12-06 09:23] VITALS: BP 125/76
--- NOTE | 2016-12-06 10:20 | NUR ---
IN RADIOLOGY AT THIS TIME.
--- NOTE | 2016-12-06 10:35 | NUR ---
BACK IN ROOM AT THIS TIME. WILL CALL DR. CORCORAN TO GET NEW DC ORDERS.
--- NOTE | 2016-12-06 11:05 | NUR ---
PATIENT DRAIN TAKEN OUT TODAY, PATIENT WILL NOT NEED HOME HEALTH, CM CALLED [facility] TO LET THEM KNOW
[2016-12-06] MEDS ORDERED: BACTRIM DS TABL1 TAB PO (11:35)
--- NOTE | 2016-12-06 12:26 | NUR ---
IV DC'D WITH TIP INTACT. DC INSTRUCTIONS EXPLAINED TO AND PATIENT. BOTH VERBALIZED UNDERSTANDING. DC'D TO VEHICLE VIA WC WITH .
== END 2016-12-06 12:26 | disposition home or self-care (01) | DRG 357 ==
LOC: D.MS 11:06
PROVIDERS: Family Medicine; Radiology Diagnostic Radiology; Surgery; ADMIT Family Medicine
PROC: B54MZZA Ultrasonography of Right Upper Extremity Veins, Guidance (ICD-10-PCS; principal; 2016-11-29)
PROC: 05HB33Z Insertion of Infusion Device into Right Basilic Vein, Percutaneous Approach (ICD-10-PCS; principal; 2016-11-29)
PROC: 0TJB8ZZ Inspection of Bladder, Via Natural or Artificial Opening Endoscopic (ICD-10-PCS; 2016-11-29)
PROC: 0DPW30Z Removal of Drainage Device from Peritoneum, Percutaneous Approach (ICD-10-PCS; 2016-11-30)
PROC: 0W9J30Z Drainage of Pelvic Cavity with Drainage Device, Percutaneous Approach (ICD-10-PCS; 2016-11-30)
PROC: 0D9W30Z Drainage of Peritoneum with Drainage Device, Percutaneous Approach (ICD-10-PCS; 2016-11-30)
DX: K57.20 Diverticulitis of large intestine with perforation and abscess without bleeding (principal); K63.2 Fistula of intestine; I95.1 Orthostatic hypotension; E16.2 Hypoglycemia, unspecified; M10.9 Gout, unspecified; F17.200 Nicotine dependence, unspecified, uncomplicated

== ENCOUNTER 2017-01-29 07:36 | Inpatient (IN) | payer BC ==
[2017-01-29 00:25] VITALS: BP 131/74
[2017-01-29 02:40] VITALS: BP 133/77
[~2017-01-29 07:36] MED LIST: BACTRIM DS TABL1 TAB PO; CIPRO500 MG PO; COREG6.25 MG PO; FLAGYL500 MG PO
[2017-01-29 09:23] LABS: HEMATOCRIT 45.8 % (42.0-54.0); HEMOGLOBIN 16.1 g/dL (13.5-17.5); MCH 30.7 pg (26.0-34.0); MCHC 35.2 g/dL (31.0-37.0); MCV 87.2 fL (80.0-100.0); MEAN PLATELET VOLUME 10.8 fL (7.4-10.4); RBC 5.25 10x6/uL (4.20-6.10)
[2017-01-29 10:15] VITALS: BP 146/93; BMI 45.7
[2017-01-29 23:55] VITALS: BP 131/74
[2017-01-30] VITALS (11 sets, daily range): BP systolic 113–133; BP diastolic 61–83; BMI 43.5; BMI 43.4
[2017-01-30] MEDS ORDERED: ZYLOPRIM100 MG PO (01:13)
[2017-01-30 06:33] LABS: BASOPHILS 0 % (0-2); EOSINOPHILS 0 % (0-7); HEMATOCRIT 42.6 % (42.0-54.0); HEMOGLOBIN 15.1 g/dL (13.5-17.5); IMMATURE GRANULOCYTES 0.3 % (0-5); LYMPHOCYTES 3.2 % (15-50); MCH 30.6 pg (26.0-34.0); MCHC 35.4 g/dL (31.0-37.0); MCV 86.4 fL (80.0-100.0); MEAN PLATELET VOLUME 10.6 fL (7.4-10.4); MONOCYTES 3.3 % (2-11); NEUTROPHILS 93.2 % (40-80); PLATELET COUNT 205 10x3/uL (130-400); RBC 4.93 10x6/uL (4.20-6.10); RDW 12.8 % (11.5-14.5)
[2017-01-30 07:05] LABS: ALBUMIN 3.5 g/dL (3.4-5.0); ALKALINE PHOSPHATASE 67 U/L (46-116); ALT (SGPT) 45 U/L (10-68); CALC OSMOLALITY 276 mosm/kg (275-300); CALCIUM 8.9 mg/dL (8.5-10.1); CARBON DIOXIDE 22.1 mmol/L (21.0-32.0); CHLORIDE - SERUM 103 mmol/L (98-107); MAGNESIUM - SERUM 1.5 mg/dL (1.8-2.4); PHOSPHOROUS 3.4 mg/dL (2.5-4.9); POTASSIUM - SERUM 3.9 mmol/L (3.5-5.1); PROTEIN - SERUM 7.3 g/dL (6.4-8.2); SODIUM 137 mmol/L (136-145); UREA NITROGEN 13 mg/dL (7-18); eGFR NON AFRICAN AMERICAN 88 mL/min (90-120)
[2017-01-30 07:06] LABS: GLUCOSE 156 mg/dL (74-106)
[2017-01-30 07:11] LABS: WBC 13.7 10x3/uL (4.8-10.8)
--- NOTE | 2017-01-30 13:56 | OP ---
PATIENT NAME: MORIAH TADEO MEDICAL RECORD: [id number] :77 LOCATION:D.MS [facility] ADMISSION DATE:01/29/17 SURGEON: DARIAN CONTEH MD DATE OF OPERATION: 01/29/2017 SURGEON: Darian Conteh MD ANESTHESIA: General anesthesia by Tray Sosa CRNA PREOPERATIVE DIAGNOSIS: History of colovesical fistula from sigmoid diverticulitis. PROCEDURE: Cystoscopy. FINDINGS: Single ureteral orifices bilaterally. No bladder tumors. No bladder fistula. BLOOD LOSS: None. CLINICAL HISTORY: This is a 41-year-old male with history of colonic diverticulitis with abscess. He was treated conservatively with antibiotics by Dr. Dolan for a period of 3 months. When he was first diagnosed, I performed cystoscopy on him and he appeared to have area of pinholes and perforations of the dome of the bladder, constituting a colovesical fistula. He has never had any pneumaturia. Dr. Dolan is about to perform bowel resection now. My task is to look in the bladder to see if there is any bladder fistula persisting. If there is a fistula, then I will assist Dr. Dolan in closing the fistula on the bladder. DESCRIPTION OF PROCEDURE: The patient has already been put to sleep. He has been given IV antibiotics. He was placed in the dorsal lithotomy position and prepped and draped. A 17-Sinhala cystoscope with 30-degree lens was used for visualization. Penile urethra showed no strictures. Prostatic urethra was nonobstructive. Going into the bladder, there were single ureteral orifices on each side of the bladder. No bladder tumors were seen. Specifically, on looking at the dome, some scar tissue from the previous stricture site was visible, but no fistula or inflammation was present anymore. At this point, the scope was removed. A 16-Sinhala Price catheter was inserted into the bladder and the Price catheter balloon was inflated with 10 cc of sterile water. This was put to bag drainage. The patient will be reprepped and redraped for Dr. Dolan's bowel surgery. TRANSINT:[id number] Voice Confirmation ID: [id number] DOCUMENT ID: [id number] DARIAN CONTEH MD at 6577 CC: [id number] DICTATION DATE: 10/18/17 2004 DEMURRAGE MAN: 01/29/17 2235 ADM IN [facility] [address] [place] [id number]
[2017-01-31 08:37] VITALS: BP 149/88
[2017-01-31 12:20] VITALS: BP 157/75
[2017-01-31 15:56] VITALS: BP 140/76
[2017-01-31 20:40] VITALS: BP 133/73
[2017-02-01 00:40] VITALS: BP 134/83
[2017-02-01 04:00] VITALS: BP 136/83
[2017-02-01 06:08] LABS: BASOPHILS 0.3 % (0-2); EOSINOPHILS 1.9 % (0-7); HEMATOCRIT 38.3 % (42.0-54.0); HEMOGLOBIN 13.3 g/dL (13.5-17.5); IMMATURE GRANULOCYTES 0.3 % (0-5); LYMPHOCYTES 21.4 % (15-50); MCH 30.3 pg (26.0-34.0); MCHC 34.7 g/dL (31.0-37.0); MCV 87.2 fL (80.0-100.0); MEAN PLATELET VOLUME 10.5 fL (7.4-10.4); NEUTROPHILS 65.1 % (40-80); PLATELET COUNT 185 10x3/uL (130-400); RBC 4.39 10x6/uL (4.20-6.10); RDW 13.1 % (11.5-14.5)
[2017-02-01 06:11] LABS: WBC 7.7 10x3/uL (4.8-10.8)
[2017-02-01 06:30] LABS: CALC OSMOLALITY 282 mosm/kg (275-300); CALCIUM 8.9 mg/dL (8.5-10.1); CARBON DIOXIDE 25.6 mmol/L (21.0-32.0); CHLORIDE - SERUM 106 mmol/L (98-107); CREATININE - SERUM 0.9 mg/dL (0.6-1.3); GLUCOSE 90 mg/dL (74-106); POTASSIUM - SERUM 3.4 mmol/L (3.5-5.1); SODIUM 142 mmol/L (136-145); UREA NITROGEN 12 mg/dL (7-18); eGFR NON AFRICAN AMERICAN > 90 mL/min (90-120)
[2017-02-01 08:11] VITALS: BP 144/89
[2017-02-01 12:37] VITALS: BP 146/96
[2017-02-01 16:18] VITALS: BP 137/78
[2017-02-01 20:00] VITALS: BP 140/80
[2017-02-02 04:00] VITALS: BP 128/80
[2017-02-02 08:43] VITALS: BP 146/89
[2017-02-02] MEDS ORDERED: HYDROCODONE-APA1 TAB PO (10:41)
--- NOTE | 2017-02-14 10:04 | OP ---
PATIENT NAME: MORIAH TADEO MEDICAL RECORD: [id number] :77 LOCATION:D.MS [facility] ADMISSION DATE:01/29/17 SURGEON: ROBIN SANTANA MD DATE OF OPERATION: 01/29/2017 PREOPERATIVE DIAGNOSES: 1. History of acute diverticulitis with abscess requiring CT-guided drainage 2. Jhiww-vz-exayhvj diverticulitis. POSTOPERATIVE DIAGNOSES: 1. History of acute diverticulitis with abscess requiring CT-guided drainage 2. Dvtxq-qq-hemnlzq diverticulitis. 3. Evidence of ongoing acute diverticulitis and dense adhesions in the pelvis. PROCEDURE: Hand-assisted laparoscopic sigmoid colectomy. SURGEON: Robin Santana MD TEMPLATE MAKER: None. BLOOD LOSS: 300 cc. ANESTHESIA: General. COMPLICATIONS: None. The risks, possible complications, and alternatives to the procedure were explained to the patient. He elected to proceed. OPERATIVE COURSE: The patient was conveyed to the operating room electively on 01/29/2017. General anesthesia was induced by the anesthesia staff. Dr. Conteh performed a cystoscopy. He found no evidence of a colo-vesicular fistula. The patient was reprepped. A transverse incision was accomplished 2 fingerbreadths cephalad to the pubic symphysis. This was essentially a Pfannenstiel incision. I dissected down through the skin and subcutaneous tissue as well as Amy's fascia. The anterior fascia was incised transversely. Subfascial flaps were created in a cephalad and caudad direction. I the rectus muscles in the midline. The peritoneal cavity was entered sharply. An Miguel retractor was placed. The Gelport top was attached to the Miguel retractor. A 12-mm trocar was inserted through the Gelport. CO2 insufflation was begun. Once a sufficient pneumoperitoneum had been achieved, two more trocars were inserted. A 5-mm trocar was inserted in the left lower quadrant. Another 5-mm trocar was inserted in the umbilicus. Utilizing a hand port tip technique with my left hand retracting the left colon medially, I incised along the left white line of Toldt with the EnSeal device. I broke up some adhesions with my fingers. I then took the top off the Gelport. We began some dissection of the sigmoid colon in the pelvis. The adhesions were very impressive and were very dense and the sigmoid colon was really fused to the back wall of the bladder. Once I was able to dissect down deeper in the pelvis, I identified some rectum was of good quality. My choice of the distal extent of the resection was at the junction of the sigmoid colon and the rectum. A window was created in the mesorectum at this site and I stapled across the rectum with a TA 60 stapler. I then divided the colon at this site. My OPERATIVE REPORT [id number] MORIAH TADEO proximal extent of the resection was at the junction of the descending and sigmoid colons. A window was created in the mesocolon. I stapled across the colon here with a TA 60 stapler. Significant fvkst-zt-xcslmam diverticulitis was present. The sigmoid mesocolon was taken down with the EnSeal device. I tried to identify the ureter on the left, but there was frankly too much induration. We gave the patient methylene blue. We saw no methylene blue spilled out into the pelvis. We irrigated with normal saline as well as with hydrogen peroxide. I chose to create a fngr-xr-xabw anastomosis. The rectum and the descending colon were brought into apposition side by side and some stay sutures of 3-0 Vicryl were used to approximate the rectum and the colon. A small colotomy and small proctotomy were performed. Anvils of the CHACHA-75 stapler were advanced and then fired. I elected to suture close the colorectal defect. This was accomplished with a running 3-0 Monocryl. We identified the appendix. The mesoappendix was taken down with the EnSeal device. I stapled across the tip of the cecum with the Endo-CHACHA 60 stapler. The appendix was removed in order to avoid diagnostic confusion in the future should the patient have a recurrence or persistence of abdominal pain. I then went below and inserted a proctoscope into the patient's anus up into the rectum. With saline instilled and the pelvis covering the anastomosis, I then insufflated air. We did this several times and there was absolutely no evidence of defect in the anastomosis. No bubbling through the anastomosis. We then aspirated. A 10-[place] drain was advanced down through the left lower quadrant trocar site. The trocars were removed. The Miguel retractor was removed. The rectus muscles were approximated in the midline with multiple interrupted horizontal mattress #1 Vicryls. The anterior fascia was approximated with running #1 Vicryls. The deep adipose tissue was approximated with interrupted 3-0 Vicryls. The subcutaneous adipose tissue was approximated with interrupted 3-0 Vicryls. The skin was approximated with a running intracuticular 3-0 Vicryl. At the umbilicus. The skin was approximated with a single intracuticular 4-0 Vicryl suture. The drain was sutured to skin with a 4-0 nylon. Sterile dressings were applied. The patient was then extubated and conveyed to post-anesthesia care unit where he was in stable condition. TRANSINT:[id number] Voice Confirmation ID: [id number] DOCUMENT ID: [id number] ROBIN SANTANA MD at 1004 CC: CAITIE CORCORAN DO and ROBIN CONTEH MD [id number] DICTATION DATE: 01/29/172322 RIVER CROSSING SUPERVISOR: 01/30/17 0059 DIS IN 02/02/17 [id number] [place] [address]
--- NOTE | 2017-02-14 10:04 | HP ---
PATIENT: MORIAH TADEO MEDICAL RECORD: [id number] ACCOUNT: [id number] LOCATION:D.MS [place] : 77 ADMISSION DATE: 01/29/17 HISTORY AND PHYSICAL EXAMINATION CHIEF COMPLAINT: Diverticulitis. HISTORY OF PRESENT ILLNESS: The patient has had diverticulitis with an abscess and he underwent CT-guided drainage of this. He has had recurrent bouts of acute diverticulitis since being dismissed home from the hospital and has had to be placed back on oral antibiotics. Dr. Adair has performed a cystoscopy as there were some question of a colovesicular fistula. Dr. Adair will be performing another cystoscopy prior to my colon resection to ensure that there is no connection between the large bowel and the bladder. The risks, possible complications and alternatives to hand-assisted laparoscopic sigmoid colectomy and possible open procedure were discussed with the patient. This included the risk of bleeding, requiring an emergency reoperation, infection, intestinal injury as well as colostomy formation or ileostomy formation. SOCIAL HISTORY: Nonsmoker. PAST MEDICAL AND SURGICAL HISTORY: Hypertension, obesity, possible undiagnosed sleep apnea. His states that he snores a lot and he stops breathing at night. HOME MEDICATIONS: Coreg. ALLERGIES: No known drug allergies. REVIEW OF SYSTEMS: Negative for CVA or seizures. Negative for diabetes or thyroid problems. Negative for renal disease or hepatitis. PHYSICAL EXAMINATION: GENERAL: The patient does not appear acutely ill. He does not appear chronically ill. HEAD: External ears appear normal. EYES: Extraocular movements are intact. NECK: Trachea is midline. CHEST: No intercostal retractions. PULMONARY: Nonlabored, no stridor. ABDOMEN: Nontender. IMPRESSION: 1. History of acute diverticulitis with abscess formation and recurrent bouts of acute diverticulitis. Essentially, the patient has dtyic-as-ildturu diverticulitis. 2. Possible colovesicular fistula. PLAN: Cystoscopy and sigmoid colectomy. TRANSINT:[id number] Voice Confirmation ID: [id number] DOCUMENT ID: [id number] HISTORY AND PHYSICAL [id number] MORIAH TADEO ROBERT MD at 1004 CC: CAITIE CORCORAN DO [id number] DICTATION DATE: 01/29/175 BAG BLEACHER: 01/30/17 0021 DIS IN 02/02/17 [facility] [address] [place] [address]
== END 2017-02-02 13:34 | disposition home or self-care (01) | DRG 330 ==
LOC: D.MS 07:36 → D.SDCHOLD 07:36 → D.MS 23:52
PROVIDERS: Anesthesiology; Surgery; Urology; ADMIT Surgery
PROC: 0TJB8ZZ Inspection of Bladder, Via Natural or Artificial Opening Endoscopic (ICD-10-PCS; 2017-01-29)
PROC: 0DBN0ZZ Excision of Sigmoid Colon, Open Approach (ICD-10-PCS; principal; 2017-01-29 11:45)
PROC: 0DTJ0ZZ Resection of Appendix, Open Approach (ICD-10-PCS; 2017-01-29 11:45)
DX: K57.32 Diverticulitis of large intestine without perforation or abscess without bleeding (principal); Z68.41 Body mass index [BMI] 40.0-44.9, adult; K63.2 Fistula of intestine; E66.9 Obesity, unspecified; I10 Essential (primary) hypertension; K66.0 Peritoneal adhesions (postprocedural) (postinfection)

== ENCOUNTER → 2017-02-03 14:04 | Outpatient (CLI) | payer BC ==
[2017-01-30 12:56] VITALS: BMI 43.4
[~2017-02-03 14:04] MED LIST changes: +HYDROCODONE-APA1 TAB PO; +ZYLOPRIM100 MG PO
== END | disposition home or self-care (01) ==
LOC: D.US 14:04
DX: S69.91XA Unspecified injury of right wrist, hand and finger(s), initial encounter (principal)

== ENCOUNTER 2018-07-14 10:24 | Day surgery (SDC) | payer BC ==
[~2018-07-14] VITALS: Ht 175.3 cm; Wt 151.8 kg
--- NOTE | ~2018-07-14 | HP ---
PATIENT: MORIAH TADEO MEDICAL RECORD: [id number] ACCOUNT: [id number] LOCATION:[facility] : 77 ADMISSION DATE: 07/14/18 PCP: CAITIE CORCORAN DO HISTORY AND PHYSICAL EXAMINATION HISTORY: The patient is here for colonoscopy. He has had a history of diverticulitis with abscess in the past that was treated with a hand-assisted laparoscopic sigmoid colectomy by tn. He also underwent an incidental appendectomy. PAST MEDICAL AND SURGICAL HISTORY: Hand-assisted laparoscopic sigmoid colectomy; colonoscopy; history of a CT-guided drainage of an abscess; history of diverticulitis; history of hypothyroidism, on replacement therapy; history of heart palpitations; history of hypertension, also questionable sleep apnea. SOCIAL HISTORY: Former smoker. HOME MEDICATIONS: Please see the nursing list. ALLERGIES: No known drug allergies. PHYSICAL EXAMINATION: GENERAL: The patient does not appear acutely ill. He does not appear chronically ill. VITAL SIGNS: Reviewed. EARS: External ears appear normal. EYES: Extraocular movements are intact. NECK: Trachea is midline. CHEST: No intercostal retractions. PULMONARY: Nonlabored, no stridor. ABDOMEN: No peritonitis with movement. IMPRESSION: History of diverticulitis with abscess prior to a hand-assisted laparoscopic sigmoid colectomy. PLAN: Colonoscopy. ADDENDUM: The patient has been having hematochezia. This is likely due to internal hemorrhoids that have been bleeding. The patient would like to undergo colonoscopy with probable internal hemorrhoidal banding. TRANSINT:[id number] Voice Confirmation ID: [id number] DOCUMENT ID: [id number] ROBIN SANTANA MD CC: [id number] DICTATION DATE: 07/14/18 1311 FINE WIRE DRAWER: 07/14/18 1339 [facility] [place] 07/14/18 [facility] [address] [place] [id number]
--- NOTE | ~2018-07-14 | HP ---
PATIENT: MORIAH TADEO MEDICAL RECORD: [id number] ACCOUNT: [id number] LOCATION:JUSTIN : 77 ADMISSION DATE: 07/14/18 PCP: CAITIE CORCORAN DO HISTORY AND PHYSICAL EXAMINATION ADDENDUM The patient has been having hematochezia. This is likely due to internal hemorrhoids that have been bleeding. The patient would like to undergo colonoscopy with probable internal hemorrhoidal banding. TRANSINT:[id number] Voice Confirmation ID: [id number] DOCUMENT ID: [id number] ROBIN SANTANA MD CC: [id number] DICTATION DATE: 07/14/18 1316 CUSTOMER CARE ASSOCIATE: 07/14/18 1330 [facility] SDC 07/14/18 [place] [address] [id number] [place] [id number]
[2018-07-14 11:01] LABS: HEMATOCRIT 44.3 % (42.0-54.0); HEMOGLOBIN 15.5 g/dL (13.5-17.5); MCH 30.6 pg (26.0-34.0); MCV 87.4 fL (80.0-100.0); MEAN PLATELET VOLUME 10.8 fL (7.4-10.4); RBC 5.07 10x6/uL (4.20-6.10); RDW 12.6 % (11.5-14.5)
[2018-07-14 11:21] LABS: CALC OSMOLALITY 278 mosm/kg (275-300); CALCIUM 9.1 mg/dL (8.5-10.1); CARBON DIOXIDE 26.3 mmol/L (21.0-32.0); CHLORIDE - SERUM 102 mmol/L (98-107); CREATININE - SERUM 1.1 mg/dL (0.6-1.3); GLUCOSE 99 mg/dL (74-106); POTASSIUM - SERUM 4.1 mmol/L (3.5-5.1); SODIUM 139 mmol/L (136-145); UREA NITROGEN 14 mg/dL (7-18); eGFR NON AFRICAN AMERICAN 78 mL/min (90-120)
[2018-07-14] MEDS ORDERED: COZAAR50 MG PO ×2 (12:22→12:23)
[2018-07-14] MEDS ORDERED: LEVO-T25 MCG PO (12:23)
[2018-07-14 12:32] VITALS: BP 125/72; Ht 175.3 cm; Wt 151.8 kg
--- NOTE | 2018-07-14 15:37 | NUR ---
1500 IV REMOVED 1515 PT D/C HOME WITH INSTRUCTIONS
--- NOTE | 2018-07-15 17:31 | OP ---
PATIENT NAME: MORIAH TADEO MEDICAL RECORD: [id number] :77 LOCATION:D.OPS ADMISSION DATE: SURGEON: DARIAN SANTANA MD DATE OF OPERATION: 07/14/2018 PREOPERATIVE DIAGNOSES: 1. Hematochezia. 2. History of diverticulitis prior to a sigmoid resection by me. POSTOPERATIVE DIAGNOSES: 1. Hematochezia. 2. History of diverticulitis prior to a sigmoid resection by me. 3. No evidence of recurrence of diverticulosis. 4. Irritated inflamed internal hemorrhoids, likely the source of the patient's bleeding. PROCEDURES: 1. Total colonoscopy to cecum. 2. Endoscopic banding of internal hemorrhoids times 5. SURGEON: Darian Santana MD COSTUME SHOP COORDINATOR: None. BLOOD LOSS: Minimal. ANESTHESIA: IV sedation. COMPLICATIONS: None. The risks, possible complications and alternatives to the procedure were explained to the patient. He elects to proceed. ENDOSCOPIC COURSE: The patient was conveyed to the endoscopy suite electively on 07/14/2018. IV sedation was induced by the anesthesia staff. The patient was placed in the Sanchez position. A digital rectal examination was performed. A colonoscope was inserted through the anus. It was easily advanced to the cecum. I slowly withdrew the endoscope. A combination of normal imaging and narrow band imaging were utilized. I irrigated and aspirated extensively. Pullback was greater than a 14-minute pullback. The cjta-qv-wlgc anastomosis looked very good. A retroflexed view was obtained in the rectum. I then unretroflexed the scope and removed it under direct vision. I then loaded a gastroscope with an endoscopic critical power install technician through the patient's anus. I retroflexed. I noted some inflamed internal hemorrhoids and 5 of these were banded utilizing the banding device. I then unretroflexed the scope and removed under direct vision. A digital rectal examination revealed that all the bands were above the dentate line. The patient was then conveyed back to his room. There is no need for the patient to follow up with me in the office unless he develops complication related to this operative procedure. TRANSINT:[id number] Voice Confirmation ID: [id number] DOCUMENT ID: [id number] OPERATIVE REPORT [id number] MORIAH TADEO DARIAN SANTANA MD at 8111 CC: CAITIE CORCORAN DO [id number] DICTATION DATE: 07/14/18 1436 FORENSIC ACCOUNTANT: 07/14/18 1611 [facility] SDC 07/14/18 [facility] [address] [place] [address]
== END 2018-07-14 15:15 | disposition home or self-care (01) ==
LOC: D.OPS 10:24
PROVIDERS: Anesthesiology; ATTEND Surgery
DX: K92.1 Melena (principal); K64.8 Other hemorrhoids; Z90.49 Acquired absence of other specified parts of digestive tract; Z01.812 Encounter for preprocedural laboratory examination

== ENCOUNTER 2018-10-26 00:40 | Emergency (ER) | payer BC ==
[~2018-10-26] VITALS: Ht 175.3 cm; Wt 145.9 kg
[~2018-10-26 00:40] MED LIST changes: +COZAAR50 MG PO; +LEVO-T25 MCG PO
[2018-10-26 00:44] VITALS: Ht 175.3 cm; Wt 145.9 kg
[2018-10-26] MEDS ORDERED: COREG12.5 MG PO (00:46)
[2018-10-26 01:32] LABS: BASOPHILS 0.2 % (0-2); EOSINOPHILS 1.4 % (0-7); HEMATOCRIT 41.9 % (42.0-54.0); HEMOGLOBIN 15.1 g/dL (13.5-17.5); IMMATURE GRANULOCYTES 0.2 % (0-5); LYMPHOCYTES 15.1 % (15-50); MCH 30.4 pg (26.0-34.0); MCV 84.3 fL (80.0-100.0); MEAN PLATELET VOLUME 10.4 fL (7.4-10.4); MONOCYTES 8.3 % (2-11); NEUTROPHILS 74.8 % (40-80); PLATELET COUNT 178 10x3/uL (130-400); RBC 4.97 10x6/uL (4.20-6.10); RDW 12.6 % (11.5-14.5); WBC 8.6 10x3/uL (4.8-10.8)
[2018-10-26 01:45] LABS: ALBUMIN 3.6 g/dL (3.4-5.0); ALKALINE PHOSPHATASE 68 U/L (46-116); ALT (SGPT) 41 U/L (10-68); CALC OSMOLALITY 275 mosm/kg (275-300); CALCIUM 8.5 mg/dL (8.5-10.1); CARBON DIOXIDE 27.8 mmol/L (21.0-32.0); CHLORIDE - SERUM 104 mmol/L (98-107); CREATININE - SERUM 1.1 mg/dL (0.6-1.3); GLUCOSE 97 mg/dL (74-106); PROTEIN - SERUM 7.4 g/dL (6.4-8.2); SODIUM 137 mmol/L (136-145); UREA NITROGEN 19 mg/dL (7-18); eGFR NON AFRICAN AMERICAN 78 mL/min (90-120)
[2018-10-26 01:54] LABS: THYROID STIMULATING HORMONE 3.89 uIU/mL (0.36-3.74)
[2018-10-26 02:08] VITALS: BP 108/58
== END 2018-10-26 02:09 | disposition home or self-care (01) ==
LOC: D.ER 00:40
PROVIDERS: Emergency Medicine
DX: R55 Syncope and collapse (principal)